=== PATIENT | female | born 1985 | race American Indian/Alaskan Native ===

== ENCOUNTER 2021-11-11 14:39 | Emergency (ER) | payer OTHER ==
[~2021-11-11] VITALS: Ht 160 cm; Wt 83.9 kg
[~2021-11-11 14:39] MED LIST: ABILIFY5 MG; IRON18 MG PO; PRENATAL TABLE1 EAC1 PO; ZOFRAN ODT8 MG SL
== END 2021-11-11 22:50 | disposition home or self-care (01) ==
LOC: ED 14:39
DX: Z30.432 Encounter for removal of intrauterine contraceptive device (principal)
CPT/HCPCS: 99283

== ENCOUNTER 2021-12-02 18:44 | Emergency (ER) | payer OTHER ==
[~2021-12-02] VITALS: Ht 162.6 cm; Wt 86.6 kg
[~2021-12-02 18:44] MED LIST changes: +MOTRIN IB200 MG PO; +PAIN RELIEF EX500 MG PO; +PERCOCET 7.5-31 EACH PO; +TYLENOL EXTRA500 MG PO
--- OUTSIDE RECORDS SUMMARY | 2021-12-02 18:50 | XMS ---
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 - 2 Visits in 30 Days CARE PROVIDERS There are no care providers on record at this time. Tatiana has no Care Guidelines for this patient. [facility] (12 MO.) [facility] NOTE: Visits indicate total known visits. ED/C VISIT TRACKING (12 MO.) 12/02/2021 18:44 [facility] [place] TYPE: Emergency COMPLAINT: - WOUND CHECK 11/11/2021 14:39 [facility] [place] TYPE: Emergency COMPLAINT: - VAGINAL ISSUES DIAGNOSES: - Encounter for removal of intrauterine contraceptive device INPATIENT VISIT TRACKING (12 MO.) No inpatient visits to display in this time frame [id number]
== END 2021-12-02 20:57 | disposition home or self-care (01) ==
LOC: ED 18:44
DX: L76.82 Other postprocedural complications of skin and subcutaneous tissue (principal); Z79.899 Other long term (current) drug therapy
CPT/HCPCS: 99283; J2270

== ENCOUNTER 2023-01-11 08:24 | Day surgery (SDC) | payer OTHER ==
[~2023-01-11] VITALS: Ht 162.6 cm; Wt 84.0 kg
--- NOTE | 2023-01-11 11:13 | NUR ---
01/11/23 1113 Sheets,Naabella 1106 PT ARRIVED TO PACU ON RA AND RESP EVEN AND UNLABORED. PT EYES CLOSED.
[2023-01-11] MEDS ORDERED: IBUPROFEN600 MG PO (11:22)
[2023-01-11] MEDS ORDERED: HYDROCODON-ACE1 EA10 PO (11:22)
[2023-01-11] MEDS ORDERED: ACETAMINOPHEN500 MG PO (11:22)
--- NOTE | 2023-01-11 20:49 | OR ---
[facility] [address], [place] [address] Signed DATE OF OPERATION: 01/11/2023 SURGEON: Aris Rubalcava MD PREOPERATIVE DIAGNOSES: 1. History of right breast cancer, status post chemotherapy. 2. Left subclavian Port-A-Cath device. POSTOPERATIVE DIAGNOSIS: 1. History of right breast cancer, status post chemotherapy. 2. Left subclavian Port-A-Cath device. PROCEDURES: 1. Explantation of left subclavian Port-A-Cath device. 2. Scar revision (excision of wide scar with primary approximation). ANESTHESIA: Local with monitored anesthesia care, Eric Siemens, LOSS PREVENTION DETECTIVE, and local 0.25% Marcaine with epinephrine 10 mL. INDICATION: This 37-year-old woman is a patient of Dr. Cecil Fritz at [facility]. She was treated for right breast cancer by lumpectomy, sentinel lymph node biopsy and axillary dissection. She additionally underwent chemotherapy on the basis of triple negative histology. She no longer needs her left subclavian Port-A-Cath device and explantation was recommended. Given her underlying overall situation, developmental delay, and so forth excision in the operative setting rather than in the office would be preferable with IV sedation and local. The risks of bleeding, infection, and other unforeseen complications was reviewed with her, she understands and wished to proceed. FINDINGS: Port was explanted completely without problem including the catheter and the port device itself. Well-formed capsule was noted. She tolerated the procedure well. BLOOD LOSS: Minimal. PROCEDURE IN DETAIL: The patient was brought to the operating room, placed in supine position, and given intravenous sedation. Preop antibiotic of Ancef had been given. The upper torso on the Electronically Signed By: ARIS RUBALCAVA MD 01/11/23 2049 PATIENT NAME: ELI FLEMING OPERATIVE REPORT DATE OF : 85 REPORT #: [id number] PHYSICIAN: ARIS RUBALCAVA MD PCP: CECIL FRITZ MD REPORT IS CONFIDENTIAL AND NOT TO BE RELEASED WITHOUT AUTHORIZATION [facility] [address], [place] [address] Signed left was prepared with a chlorhexidine solution and draped sterilely. The palpable port was noted in below the incision. The incision was somewhat wide and although not keloid in formation, was somewhat hypertrophic. The area was infiltrated with 0.25% Marcaine with epinephrine. Elliptical excision of the scar was undertaken. Dissection was carried through the subcutaneous tissue. Electrocautery used for hemostasis. The capsule was incised with electrocautery revealing underlying port. The port and catheter were removed in continuity without problem. The genaro catheter site was secured with a hemostat and oversewn with 3-0 Vicryl. Hemostasis was assured with electrocautery. Wounds closed in layers with interrupted 3-0 Vicryl and running subcuticular 3-0 Vicryl for the skin. Steri-Strips were applied as was Acticoat dressing. Blood loss was minimal. Complications none. MD TONE Maza/JESSICA /[id number] cc: MD Dr. Cecil Vidal [facility] Copies: KEISHA SORENSON MD ~ Electronically Signed By: ARIS RUBALCAVA MD 01/11/23 2049 PATIENT NAME: ELI FLEMING OPERATIVE REPORT DATE OF : 85 REPORT #: [id number] PHYSICIAN: ARIS RUBALCAVA MD PCP: CECIL FRITZ MD REPORT IS CONFIDENTIAL AND NOT TO BE RELEASED WITHOUT AUTHORIZATION
== END 2023-01-11 12:00 | disposition home or self-care (01) ==
LOC: OPS 08:24 → DS 08:24 → OPS 09:45
PROVIDERS: ATTEND Surgery
DX: Z45.2 Encounter for adjustment and management of vascular access device (principal); Z85.3 Personal history of malignant neoplasm of breast; F81.9 Developmental disorder of scholastic skills, unspecified
CPT/HCPCS: 00532; J2250; J2704; J3010; J7121

== ENCOUNTER 2024-08-17 16:28 | Emergency (ER) | payer OTHER ==
[~2024-08-17] VITALS: Ht 162.6 cm; Wt 81.0 kg
[~2024-08-17 16:28] MED LIST changes: +ACETAMINOPHEN500 MG PO; +AMOX TR-K CLV1 EAC1 PO; +HYDROCODON-ACE1 EA10 PO; +IBUPROFEN600 MG PO; +PREDNISONE20 MG PO; +VENTOLIN HFA18 GM INH; +ZITHROMAX250 MG PO
[2024-08-17] MEDS ORDERED: ondansetron HCL 4 MG TAB PO ONE (16:45)
[2024-08-17] MEDS ORDERED: ONDANSETRON ODT8 MG PO (17:10)
[2024-08-17 17:15] VITALS: BP 127/73
== END 2024-08-17 17:15 | disposition home or self-care (01) ==
LOC: ED 16:28
DX: R11.2 Nausea with vomiting, unspecified (principal); J18.9 Pneumonia, unspecified organism; F89 Unspecified disorder of psychological development; Z79.2 Long term (current) use of antibiotics; Z79.52 Long term (current) use of systemic steroids
CPT/HCPCS: 99284; A9270

== ENCOUNTER 2024-08-19 20:22 | Emergency (ER) | payer OTHER ==
[~2024-08-19] VITALS: Ht 162.6 cm; Wt 79.6 kg
[~2024-08-19 20:22] MED LIST changes: +ONDANSETRON ODT8 MG PO
[2024-08-19] MEDS ORDERED: LACTATED RINGER'S 1,000 ML IV ONE (21:00)
[2024-08-19] MEDS ORDERED: methylPREDNISolone SOD SUCC 125 MG/2 ML VIAL IV ONE (21:00)
[2024-08-19] MEDS ORDERED: ALBUTEROL/IPRATROPIUM 3 ML NEB INH ONE (21:00)
[2024-08-19] MEDS ORDERED: ondansetron HCL 4 MG/2 ML VIAL IV ONE (21:00)
[2024-08-19] MEDS ORDERED: FAMOTIDINE 20 MG/ 2 ML VIAL IV ONE (21:00)
[2024-08-19 21:22] LABS: INFLUENZA B NAA NEGATIVE (NEGATIVE); RESPIRATORY SYNCYTIAL VIR NAA NEGATIVE (NEGATIVE)
[2024-08-19 21:44] LABS: ALBUMIN 3.3 g/dL (3.4-5.0); ALBUMIN/GLOBULIN RATIO 0.65 (1.1-2.4); ANION GAP 18.3 (7-21); BILIRUBIN, TOTAL 1.1 ng/dL (0.2-1.0); BUN/CREATININE RATIO 17.56 (6.0-28.6); CALCIUM 9.7 mg/dL (8.5-10.1); CREATININE, SERUM 0.74 mg/dL (0.55-1.02); MAGNESIUM 1.6 mg/dL (1.8-2.4); POTASSIUM 3.3 mmol/L (3.5-5.1); PROTEIN, TOTAL 8.4 g/dL (6.4-8.2)
[2024-08-19 21:46] LABS: BASOPHILS 0.6 % (0-2); EOSINOPHILS 0.2 % (0-6); HEMATOCRIT 39.3 % (35.0-50.0); LYMPHOCYTES 16.2 % (24-44); MCH 26.4 (27-36); MCHC 33.2 g/dl (30-36); MCV 79.5 fl (81-99); MONOCYTES 6.3 % (0-12); NEUTROPHILS 76.7 % (39-80); PLATELET COUNT 233 K/uL (140-440); RBC 4.94 M/ul (4.3-5.7); RDW 15.3 (10.5-15.0)
[2024-08-19 22:05] LABS: LACTIC ACID, BLOOD 0.9 mmol/L (0.4-2.0)
[2024-08-19] MEDS ORDERED: POTASSIUM CHLORIDE 10 MEQ TABCR PO ONE (22:45)
[2024-08-19] MEDS ORDERED: levoFLOXacin 500 MG TAB PO ONE (22:45)
[2024-08-19] MEDS ORDERED: MAGNESIUM OXIDE 400 MG TABLET PO ONE (22:45)
[2024-08-19] MEDS ORDERED: ACETAMINOPHEN 500 MG TAB PO ONE (23:00)
[2024-08-19] MEDS ORDERED: LEVOFLOXACIN500 MG PO (23:27)
[2024-08-20 00:02] VITALS: BP 145/69
== END 2024-08-20 00:04 | disposition home or self-care (01) ==
LOC: ED 20:22
PROVIDERS: Internal Medicine
DX: J18.9 Pneumonia, unspecified organism (principal); J45.909 Unspecified asthma, uncomplicated; E87.6 Hypokalemia; E83.42 Hypomagnesemia; Z85.3 Personal history of malignant neoplasm of breast
CPT/HCPCS: 36415; 71045; 80053; 83605; 83735; 83880; 85025; 87040; 87502; 94640; 96374; 96375; 99285-25; A9270; J2405; J2919; J7121; U0002

== ENCOUNTER 2024-08-22 15:21 | Emergency (ER) | payer OTHER ==
[~2024-08-22] VITALS: Ht 162.6 cm; Wt 79.0 kg
[~2024-08-22 15:21] MED LIST changes: +LEVOFLOXACIN500 MG PO
[2024-08-22] MEDS ORDERED: predniSONE 20 MG TAB PO ONE (15:30)
[2024-08-22] MEDS ORDERED: ALBUTEROL/IPRATROPIUM 3 ML NEB INH ONE (15:30)
[2024-08-22 16:22] LABS: INFLUENZA B NAA NEGATIVE (NEGATIVE); RESPIRATORY SYNCYTIAL VIR NAA NEGATIVE (NEGATIVE)
[2024-08-22 17:10] VITALS: BP 140/75
== END 2024-08-22 17:10 | disposition home or self-care (01) ==
LOC: ED 15:21
PROVIDERS: Emergency Medicine
DX: J00 Acute nasopharyngitis [common cold] (principal); Z79.899 Other long term (current) drug therapy
CPT/HCPCS: 71045; 87502; 94640; 99285-25; J7512; U0002

== ENCOUNTER 2024-08-26 10:38 | Inpatient (IN) | payer OTHER ==
[~2024-08-26] VITALS: Ht 162.6 cm; Wt 75.7 kg
[2024-08-26] VITALS (16 sets, daily range): BP systolic 106–178; BP diastolic 70–148
[2024-08-26] MEDS ORDERED: ondansetron HCL 4 MG/2 ML VIAL IV PRN ×2 (10:45→13:30)
[2024-08-26] MEDS ORDERED: SODIUM CHLORIDE 0.9% 1,000 ML IV ONE (10:45)
[2024-08-26 11:21] LABS: BASOPHILS 0.3 % (0-2); EOSINOPHILS 0.1 % (0-6); HEMATOCRIT 40.7 % (35.0-50.0); HEMOGLOBIN 13.9 g/dL (12.0-18.0); LYMPHOCYTES 8.1 % (24-44); MCH 26.8 (27-36); MCHC 34.1 g/dl (30-36); MCV 78.5 fl (81-99); MONOCYTES 4.3 % (0-12); NEUTROPHILS 87.2 % (39-80); PLATELET COUNT 212 K/uL (140-440); RBC 5.18 M/ul (4.3-5.7); RDW 14.8 (10.5-15.0)
[2024-08-26 11:28] LABS: ALBUMIN 3.4 g/dL (3.4-5.0); ALBUMIN/GLOBULIN RATIO 0.65 (1.1-2.4); ANION GAP 17.3 (7-21); BILIRUBIN, TOTAL 1.2 ng/dL (0.2-1.0); BUN/CREATININE RATIO 18.66 (6.0-28.6); CALCIUM 10.2 mg/dL (8.5-10.1); CREATININE, SERUM 0.75 mg/dL (0.55-1.02); POTASSIUM 3.3 mmol/L (3.5-5.1); PROTEIN, TOTAL 8.6 g/dL (6.4-8.2)
[2024-08-26 11:29] LABS: INFLUENZA B NAA NEGATIVE (NEGATIVE); RESPIRATORY SYNCYTIAL VIR NAA NEGATIVE (NEGATIVE)
[2024-08-26 11:54] LABS: BILIRUBIN, URINE POSITIVE (negative); BLOOD/HGB, URINE TRACE-I (Negative); KETONE, URINE SMALL (Negative); LEUK ESTERASE, URINE NEGATIVE (negative); NITRITE, URINE NEGATIVE (negative)
[2024-08-26 11:58] LABS: EPITHELIAL CELLS, URINE SQUAMOUS 1+ /lpf (0-1+)
[2024-08-26 12:01] LABS: CRYSTALS, URINE AMORPHOUS URATES 1+ (0-1+)
[2024-08-26 12:02] LABS: BACTERIA, URINE 1+ /hpf (negative); CASTS, URINE NONE SEEN \\lpf; COLLECTION TYPE, URINE CATH; REFLEX CULTURE, URINE No (No)
[2024-08-26] MEDS ORDERED: CEFTRIAXONE/SODIUM CHLORIDE 1 GM/100 ML PIGGYBACK IV SCH (12:52)
[2024-08-26] MEDS ORDERED: AZITHROMYCIN 500 MG in DEXTROSE 5% 250 ML IV SCH (12:53)
[2024-08-26] MEDS ORDERED: ACETAMINOPHEN 325 MG TAB PO PRN (13:00)
[2024-08-26] MEDS ORDERED: KETOROLAC TROMETHAMINE 15 MG/ML VIAL IV ONE (13:00)
[2024-08-26] MEDS ORDERED: POTASSIUM CHLORIDE 10 MEQ TABCR PO ONE (13:15)
[2024-08-26] MEDS ORDERED: ALBUTEROL SULFATE 0.083% 3 ML VIAL INH PRN (14:15)
--- NOTE | 2024-08-26 14:55 | NUR ---
PT WAS ABLE TO TRANSFER SELF FROM STREACHER TO BED. ORAL CARE PROVIDED AND MOISTURE CREAM APPLIED BY TALENT PARTNER. ASSESSMENT COMPLETED AND SIDE RAILS X 4 UP AND PT IS ACCROSS FROM NURSES STATION DUE TO MENTAL STATUS CHANGES.
--- NOTE | 2024-08-26 15:16 | NUR ---
pt appears to be sleeping resp even and unlabored at this time. side rails x 4 and bed alarm on.
--- NOTE | 2024-08-26 15:57 | NUR ---
PT WANTED TO GO TO THE BATHROOM, TWO PERSON ASSISTANCE TO BEDSIDE COMMODE, PT WAS UNABLE TO KEEP LEGS UNDER HER AND TWO STAFF HELPED PT TO THE FLOOR. THEN ASKED FOR FOR LIFT TO GET PT BACK TO BED AND THEN PLACED ATTENDS AND PURWICK INPLACE. BEDSIDE SWALLOW EVEL COMPLETED AND PT PASSED WITH THIN LIQUIDS, SIDE WELLS X 4 AT THIS TIME. PT HAD SOME EMINES AND WAS COUGHING AFTERWARDS. SUNCTION ON AT THE BEDSIDE FOR ASSISTANCE NEEDED. DR VARGAS NOTIFIED AND OREDERS CHANGED FROM PO POTASSIUM TO IV. AND HE WANTS PT TO TAKE ORALS WITH HEAD OF THE BED AT 90 DEGREES. PHONE CALL TO PHARMACY AND POTASSIUM CHANGED TO IV.
[2024-08-26] MEDS ORDERED: POTASSIUM ACETATE 40 MEQ,LIDOCAINE HCL 1% 40 MG in DEXTROSE 5% 250 ML IV ONE (16:00)
[2024-08-26] MEDS ORDERED: POTASSIUM CHLORIDE 40 MEQ,LIDOCAINE HCL 1% 40 MG in DEXTROSE 5% 250 ML IV ONE (16:15)
--- NOTE | 2024-08-26 16:22 | NUR ---
STARTED IV K+ AT THIS TIME, TALKED WITH PT. SHE IS ASKING FOR HER SISTER. EXPLAINED THAT SHE IS TO WORK [employer] AND PT WANTS TO TALK TO HER WHEN WE SEE HER. EXPLAINED THAT WHEN WE SEE HER SISTER WILL WILL HAVE HER COME AND TALK WITH HER.
--- NOTE | 2024-08-26 16:31 | NUR ---
DIANA AND CELL PHONE, KEYS AND BLACK CASE IN LOCK BOX IN ROOM. PT IS UNABLE TO GO THOUGHT HER PERSONAL BELONGINGS. SHE HAS CLOTHING IN GREEN BAG AND A BACK PACK
[2024-08-26] MEDS ORDERED: FLU VACC TS2024-25(6MOS UP)/PF 1 EACH SYR IM SCH (17:15)
--- NOTE | 2024-08-26 17:28 | NUR ---
tried to feed patient, she would take a bit and push her food to the front of her mouth, and then writer technical publications would remove the food. tryed water agin and then patient would cough. dr notified and talked with sister. and sister at the bedside at this time.
[2024-08-26] MEDS ORDERED: SODIUM CHLORIDE 0.9% 1,000 ML IV SCH (18:00)
[2024-08-26] MEDS ORDERED: LORazepam 2 MG/ML VIAL ONE (18:02)
[2024-08-26] MEDS ORDERED: LORazepam 2 MG/ML VIAL IV ONE (18:30)
--- NOTE | 2024-08-26 18:30 | NUR ---
PT TRANSPORTED TO CT VIA BED AT 18:[address] TABLE, BUT PT WOULD NOT HOLD STILL FOR TEST. PHONE CALL TO AND ORDER RECEIVED 0.5MG ATIVAN IV PUSH X 1. IT WAS GIVEN AT 18:06 AND PT COULD NOT HOLE STILL EVEN WITH MEDIS ON BOARD. 18:12 PT STILL MOVING ON TABLE. PT TRANSFERED BACK TO THE BED AND BROUGHT BACK TO THE FLOOR TO ROOM 110. NOTIFIED OF ISSUE WITH PT OF NOT GETTING THE TEST COMPLETED. NO NEW ORDERS.
[2024-08-26 19:09] LABS: TSH, 3RD GENERATION 1.498 uIU/mL (0.358-3.740)
--- NOTE | 2024-08-26 19:10 | NUR ---
PATIENT ARRIVED TO UNIT VIA BED FROM MED/SURG. REPORT RECEIVED FROM RICHARD JACKSON. VSS. NOTED EYES NO HAVE NO EYE CONTACT WITH PEOPLE IN THE ROOM, NOTED NO TRACKING WITH EYE MOVEMENT, HOWEVER PUPILS REACTIVE. NURSING STAFF IN ROOM WITH PATIENT BED ALARM ON.
--- NOTE | 2024-08-26 19:30 | NUR ---
PT TRANSFERED TO CCU IN RM 129 VIA BED REPORT GIVEN TO ANAYELI RAMOS. ALL QUESTIONS ANSWERED AND PERSONAL BELONGINGS TAKEN AT THIS TIME TO ROOM 129.
--- NOTE | 2024-08-26 19:44 | NUR ---
20G, 1.75" USIV PLACED @ 0.5CM DEPTH. FLUSHED WELL, GOOD BLOOD RETURN. PT TOLERATED WELL. PRIMARY RN IN ROOM.
[2024-08-26] MEDS ORDERED: ETOMIDATE 40 MG/20 ML VIAL IV PRN (19:45)
--- NOTE | 2024-08-26 19:45 | NUR ---
PATIENT IN BED. MD IN TO SEE PATIENT. NEW ORDERS RECEIVED. IV FLUIDS HUNG, IV ABX STARTED. PATIENT ALERT AND ORIENTED X 2, SHE IS ABLE TO TELL US SHE IS IN A HOSPITAL AND WHAT TOWN WE ARE IN. PATIENT CRIES OUT AND MOANS AT TIMES. WHEN ASKED IF SHE IS IN PAIN PATIENT REPORTS SHE HAS STOMACH PAIN. PATIENT REPORTS FEELING LIKE SHE IS GOING TO "THROW UP", PRN GIVEN SEE MAR. ABDOMEN SOFT, APPEARS NON TENDER TO PALPATION HOWEVER PATIENT REPORTS ABD PAIN. BOWEL TONES HYOACTIVE. MD NOTIFIED. SECOND RN SKIN CHECK COMPLETED. SKIN INTACT AND UNREMARKABLE FOR COMPLICATIONS. NEURO ASSESSMENT COMPLETED.
--- NOTE | 2024-08-26 20:45 | NUR ---
PATIENT SISTER IN ROOM. PATIENT C/O HEADACHE. MD NOTIFIED.
[2024-08-26] MEDS ORDERED: ETOMIDATE 40 MG/20 ML VIAL ONE (21:05)
[2024-08-26] MEDS ORDERED: MORPHINE SULFATE 4 MG/ML VIAL IV ONE (21:15)
--- NOTE | 2024-08-26 21:29 | NUR ---
PATIENT HOLDING SIDE RAILS OF BED SHAKING THEM. RESTLESS C/O HEAD PAIN. PRN GIVEN. SEE MAR.
--- NOTE | 2024-08-26 21:45 | NUR ---
PATIENT TAKEN DOWN TO CT.
--- NOTE | 2024-08-26 22:15 | NUR ---
PATIENT BACK TO CCU. PATIENT TOLLERATED CT WITH NO ISSUES OR CONCERNS. VSS. RESTING IN BED. IVF RESTARTED. RESTING IN BED RESPIRATIONS EVEN AND UNLABORED. BED ALARM ON.
[2024-08-26] MEDS ORDERED: CEFTRIAXONE/SODIUM CHLORIDE 1 GM/100 ML PIGGYBACK IV ONE (23:00)
[2024-08-26] MEDS ORDERED: DEXAMETHASONE SOD PHOS 4 MG/ML VIAL IV SCH (23:00)
--- NOTE | 2024-08-26 23:01 | NUR ---
PATIENT WITH DECREASED URINE OUTPUT. BLADDER SCAN FOR > 684MLS.
[2024-08-26] MEDS ORDERED: MORPHINE SULFATE 4 MG/ML VIAL IV PRN (23:15)
--- NOTE | 2024-08-26 23:22 | NUR ---
PATIENT RESTLESS IN BED. GRABBING SIDE RAILS, CRYING OUT. PRN GIVEN.
[2024-08-26] MEDS ORDERED: fentaNYL citrate 100 MCG/2 ML VIAL IV PRN (23:30)
--- NOTE | 2024-08-26 23:40 | NUR ---
PATIENT CONTINUES TO REPORT PAIN, LIMITED COMMUNICATION BUT STATES YES TO PAIN IN HER HEAD, ABD AND LEGS. PATIENT TRASHING IN BED AND APPEARS TO BE IN SEVERE PAIN. FLACC SCORE 9/10. MD AT BEDSIDE. ORDERS GIVEN FOR FETANYL WHICH WAS PROVIDED. PATIENT CONTINUED TO HAVE MOMENTS OF DISCOMFORT AND RESTLESSNESS. PRECEDEX ORDERED BUT NOT YET STARTED. STAFF AT BEDSIDE TO COMFORT PATIENT. ATTEMPTS MADE TO REPOSITION PAIN FOR COMFORT.
[2024-08-27] VITALS (23 sets, daily range): BP systolic 138–183; BP diastolic 75–109
--- NOTE | 2024-08-27 00:17 | NUR ---
16F REAGAN CATHERTER PLACED WITH 10CC NS IN BALLOON, PATIENT TOLLERATED WELL. YELLOW URINE RETURN. PATIENT RESTING IN BED WITH EYES CLOSED APPEARS TO BE COMFORTABLE AT THIS TIME. BED ALARM ON.
--- NOTE | 2024-08-27 00:43 | NUR ---
PATIENT RESTING IN BED. APPEARS TO BE COMFORTABLE AT THIS TIME. VSS. IV FLUIDS INFUSING WITH NO ISSUES OR CONCERNS. MEDICATIONS ADMINSTERED SEE MAR. ASSESSMENT COMPLETE. BED ALARM ON.
--- NOTE | 2024-08-27 01:21 | NUR ---
FAMILY AT BEDSIDE.
--- NOTE | 2024-08-27 02:40 | NUR ---
PATIENT WITH INCREASED PAIN, GRABBING SIDE RAILS OF BED. MOANING AND CRYING. PRNS GIVEN SEE MAR.
--- NOTE | 2024-08-27 03:10 | NUR ---
INCREASED PAIN CONTINUES, PATIENT RESTLESS. PRECEDEX DRIP STARTED. SEE MAR. FAMILY AT BEDSIDE.
--- NOTE | 2024-08-27 04:02 | NUR ---
PATIENT INCREASINGLY AGITATED. FAMILY BELIVES HER TO BE PAINFUL AND PATIENT FLACC SCORE 8/10. PATIENT PROVIDED PRN MEDS PER ORDER AND PRECEDEX WAS TITRATED; SEE FLOWSHEET AND EMAR. PATIENT IS GRASPING AT FAMILY AND RESTLESS IN THE BED. FAMILY UNABLE TO CONSOLE PATIENT. PATIENT RR 25 AND GASPING. Sp02 90% ON ROOM AIR. PLACED ON 2L NC. HR 130'S. SEVERAL MINS AFTER MEDS PROVIDED PATIENT'S HR IMPROVED TO 110. RR 18. Sp02 95% ON 2L NC. PATIENT APPEARS MORE COMFORTABLE. RASS -1. PATIENT FAMILY REMAINS AT BEDSIDE.
--- NOTE | 2024-08-27 05:23 | NUR ---
PATIENT RESTING IN BED WITH EYES CLOSED. RESPIRATIONS EVEN AND UNLABORED. IV SITE PATENT. SAO2 97% ON 2L OXYGEN VIA NC. FAMILY AT BEDSIDE. REAGAN DRAINING YELLOW URINE WITH NO ISSUE, QUANITY SUFFICIENT URINE OUTPUT. LAB IN ROOM. BED ALARM ON.
[2024-08-27 05:43] LABS: BASOPHILS 0.4 % (0-2); HEMATOCRIT 37.4 % (35.0-50.0); HEMOGLOBIN 12.4 g/dL (12.0-18.0); LYMPHOCYTES 5.7 % (24-44); MCH 26.4 (27-36); MCHC 33.2 g/dl (30-36); MCV 79.5 fl (81-99); MONOCYTES 3.4 % (0-12); NEUTROPHILS 90.5 % (39-80); PLATELET COUNT 184 K/uL (140-440); RBC 4.71 M/ul (4.3-5.7); RDW 15.2 (10.5-15.0)
[2024-08-27 05:52] LABS: ANION GAP 14.2 (7-21); BUN/CREATININE RATIO 11.76 (6.0-28.6); CREATININE, SERUM 0.68 mg/dL (0.55-1.02); MAGNESIUM 1.7 mg/dL (1.8-2.4); POTASSIUM 3.2 mmol/L (3.5-5.1)
--- NOTE | 2024-08-27 06:15 | NUR ---
PATIENT RESTING IN BED, IV SITES PATENT. IV FLUIDS INFUSING WITH NO ISSUES. CONTINUES ON PRECEDEX GTT 0.5MCG. VSS. IV ABX HUNG. FAMILY AT BEDSIDE. BED ALARM ON.
--- NOTE | 2024-08-27 06:58 | NUR ---
CALL LIGHT ANSWERED. PATIENT RESTLESS, PULLING ON OXYGEN NC. FAMILY UNABLE TO CONSOLE PATIENT. PRN GIVEN AND PRECEDEX GTT INCREASED TO 0.6. PATIENT NOW RESTING COMFORTABLY IN BED WITH FAMILY AT BEDSIDE.
[2024-08-27] MEDS ORDERED: MAGNESIUM SULFATE 2 GM/50 ML BAG IV ONE (08:00)
[2024-08-27] MEDS ORDERED: IBLOOD GLUCOSE TEST STRIP 1 EA TEST VI SCH (08:00)
--- NOTE | 2024-08-27 08:17 | NUR ---
REFERRED BY RN ANNIE. PT APPEARED TO BE SLEEPING, FAMILY CONSIDERING INFORMATION RELAYED BY MEDCICAL CARE TEAM, EXPRESSING SITUATIONALLY APPROPRIATE EMOTIONS, TEARS. ENGINEERING OPERATOR PROVIDED SUPPORTIVE PRESENCE, HOSPITALITY, EXPLORED HOPE, PRAYER. FAMILY EXPRESSED GRATITUDE, HOPE.
[2024-08-27] MEDS ORDERED: POTASSIUM CHLORIDE 40 MEQ,LIDOCAINE HCL 1% 40 MG in DEXTROSE 5% 250 ML IV ONE (08:30)
[2024-08-27] MEDS ORDERED: CEFTRIAXONE/SODIUM CHLORIDE 2 GM/100 ML PIGGYBACK IV SCH (09:00)
[2024-08-27] MEDS ORDERED: ENOXAPARIN SODIUM 40 MG/0.4 ML SYR SUB-Q SCH (09:00)
--- NOTE | 2024-08-27 09:08 | NUR ---
IN PATIENT'S ROOM THIS AM AROUND [address] VARGAS HE WAS MAKING HIS ROUNDS. PT'S SISTER OLIVIA, MOTHER MARY ANN, AND BROTHER YAA WERE IN ROOM. DR. VARGAS DISCUSSING WITH FAMILY MEMBERS THE FINDINGS OF THE CT SCANS THAT WERE OBTAINED LAST EVENING. DR. SORENSON WAS CONSULTED BY DR. VARGAS, AND THE FAMILY IS ASKING TO VISIT WITH DR. SORENSON TODAY, WHICH WILL BE AROUND 1300. PATIENT REMAINS ON PRECEDEX GTT AT 0.6 MGC/KG/HR. PATIENT IS DROWSY AND APPEARS COMFORTABLE WITH THIS LEVEL OF MEDICATION INFUSING. PT STILL NOTED TO BE BRINGING ARMS UP TO FACE OCCASIONALLY AND GRIMACING, WELL MOVING LEGS IN BED TO REPOSITION. HR IN THE 70-80s MOSTLY, SINUS. PT IS WEARING 2 L NC AT THIS TIME. BP AT 0900 WAS 142/76 (97). MEDS STARTED PER EMAR.
--- NOTE | 2024-08-27 10:25 | NUR ---
PATIENT CONTINUES TO SLEEP AT THIS TIME WITH HER SISTER AND HER MOTHER AT HER BEDSIDE. PRECEDEX REMAINS AT 0.6 MCG/KG/HR. IVF CONTINUE AT 125 ML/HR AND IV POTASSIUM ALSO INFUSING INTO RIGHT WRIST. WILL CONTINUE TO MONITOR.
--- NOTE | 2024-08-27 11:19 | NUR ---
PATIENT REPOSITIONED AROUND 1030 AND A PILLOW PLACED UNDER RIGHT HIP. WILL CONTINUE TO HELP PATIENT TURN NEEDED. PT NOTED TO BE MOANING SOME AND APPEARING TO HAVE SOME LEVEL OF DISCOMFORT. PRN FENTANYL GIVEN PER EMAR.
[2024-08-27] MEDS ORDERED: PHARMACY RENAL DOSE ADJUSTMENT 1 DOSE MISC PO SCH (12:00)
--- NOTE | 2024-08-27 12:03 | NUR ---
THE PATIENT IS SLEEPING AT THIS. THE DC SEWER CONNECTOR WILL NOT DISTURB THE PATIENT. DR SORENSON WILL BE TALKING TO FAMILY AND PATIENT ABOUT THE NEW CANCER FINDINGS. THE CHEMICAL PROCESS EQUIPMENT OPERATOR WILL RETURN LATER TO TALK TO THE PATIENT OR FAMILY. THE PATIENT IS ON A PRECEDEX DRIP.
--- NOTE | 2024-08-27 13:18 | NUR ---
PATIENT'S FAMILY HAS GONE OVER TO TALK WITH DR. SORENSON. PATIENT GIVEN A BED BATH AND LINENS CHANGED. PATIENT IS UNCOMFORTABLE DURING THIS MOVEMENT SOME, AND MOANS IN PAIN, WITH HER BROW FURROWED. WHEN ASKING PATIENT IF SHE IS IN PAIN, SHE MOANS AND NODS HEAD YES. WHEN ASKING PATIENT IF SHE KNOWS WHERE SHE IS, SHE GROANS "HOME." ORIENTED PATIENT TO PLACE. PT NOW RESTING. PRECEDEX REMAINS AT 0.6 MCG/KG/HR. WILL CONTINUE TO MONITOR.
--- NOTE | 2024-08-27 13:21 | NUR ---
PT UNABLE TO TALK, FAMILY NOT IN ROOM. PROVIDED PRAYER.
--- NOTE | 2024-08-27 13:49 | NUR ---
UR CLINICAL REVIEW: [facility] INPATIENT CRITERIA FOR PNEUMONIA BASIC DMAP INPT 08/26/24 @ 1307 ORDER MATCHES REG NO AUTH REQUIRED PER MEDICAID GUIDELINES DISCHARGE PLANNING PENDING FURTHER CONSULT AND EVALUATION 08/29/24
--- NOTE | 2024-08-27 13:52 | NUR ---
WENT TO PATIENT'S ROOM TO DO THE ASSESMENT. PATIENT IS SLEEPING AND FAMILY HAS GONE TO 'S OFFICE TO DISCUSS THE CANCER FINDINGS.
--- NOTE | 2024-08-27 15:17 | NUR ---
VISITED DURING END OF DAY ROUNDS. PT SUPPORTED BY EXTENSIVE FAMILY IN ROOM. ALL DENIED IMMEDIATE NEEDS. PROJECT MANAGEMENT ENGINEER PROVIDED SUPPORTIVE PRESENCE, PRAYER. FAMILY EXPRESSED GRATITUDE.
--- NOTE | 2024-08-27 15:18 | NUR ---
THE PATIENT'S ROOM IS DARK AND PATIENT IS SLEEPING. THE PATIENT CONTINUES ON A PRECEDEX DRIP.ALSO SPOKE TO THE NURSES AND READ THE CHART TO DO THIS ASSESSMENT.THE PATIENT IS DEVELOPMENTALY DELAYED AND IS ABLE TO ANSWER SIMPLE QUESTIONS.PATIENT HAS DX BREAST CANCER AND NOW HAS METS.THE PATIENT HAS SHOWN SOME DECLINE THE LAST COUPLE MONTHS. THE PATIENT'S MOTHER AND SISTER MET WITH TO DISCUSS THE CANCER FINDINGS. THE NEUROBIOLOGIST WILL MONITOR THE PATIENT'S NEEDS CLOSELY AND BE READY TO SUPPORT THE PATIENT'S NEEDS.
--- NOTE | 2024-08-27 17:15 | NUR ---
medications reconiciled
--- NOTE | 2024-08-27 18:17 | NUR ---
PATIENT REMAINS ON PRECEDEX GTT AT 0.3 MCG/KG/HR.PT IS RESTING AND SLEEPING MOSTLY, BUT STILL AWAKENS SOME AND MOANS OUT, APPEARING UNCOMFORTABLE AND IN PAIN. PRN PAIN MEDS ARE GIVEN PER EMAR. PT'S SISTER AND HER MOTHER REMAIN IN ROOM AND ATTENTIVE TO HER. IVF CONTINUE AT 125 ML/HR.
--- NOTE | 2024-08-27 19:30 | NUR ---
REPORT RECEIVED FROM RAMÓN RAMOS. PT IS RESTING IN BED WITH FAMILY IN ROOM. PRECEDEX DRIP IS INFUSING AT 0.3MCG/KG/HR AND IVF INSUING AT 125 ML/HR. PT APPEARS RESTFUL, NO OUTWARD S/SX OF PAIN NOTED. HR 70'S, RR 16, SOMEWHAT IRREGULAR BUT NOT LABORED.
--- NOTE | 2024-08-27 20:19 | NUR ---
IN TO DISCUSS PLAN OF CARE WITH PTS BROTHER ABLE- PLAN TO DISCUSS QUESTIONS AND CONCERNS FOR PLAN FOR PT WITH MD TOMORROW AND CASE MANAGEMENT. PT IS RESTFUL AND CALM, HR 70'S SINUS RHYTHM, SPO2 98% ON ROOM AIR. RR 16.
--- NOTE | 2024-08-27 20:21 | NUR ---
PATIENT BS LEVEL OBTAINED AND RECORDED BY THIS RN. PATIENT AND FAMILY HAVE NO CURRENT NEEDS. CALL LIGHT IN REACH.
--- NOTE | 2024-08-27 22:50 | NUR ---
PATIENT MOTHER OUT TO NURSES STATION REPORTING THAT PATIENT IS IN PAIN. THIS RN ASKED PATIENT IF SHE WAS IN PAIN AND SHE SHOOK HER HEAD YES. PRN PAIN MEDICATION ADMINISTERED. PATIENT AND FAMILY EDUCATED TO CALL IF PATIENT IS STILL IN PAIN IN ABOUT 20 MINUTES. PATIENT MOTHER VERBILIZED UNDERSTANDING. NO FURTHER NEEDS. CALL LIGHT IN REACH.
[2024-08-28] VITALS (17 sets, daily range): BP systolic 141–177; BP diastolic 79–116
--- NOTE | 2024-08-28 00:04 | NUR ---
IN TO CHECK ON PT, SHE IS LOOKING RESTFUL SPO2 92% ON ROOM AIR, HR 80'S. MOTHER AT BEDSIDE.
--- NOTE | 2024-08-28 00:14 | NUR ---
IN TO CHECK ON PT AND MOM, DENIES NEEDS, PT REMAINS RESTFUL AND NO OUTWARD SIGNS OF PAIN NOTED.
--- NOTE | 2024-08-28 01:35 | NUR ---
PATIENT AND FAMILY MEMBER REPORTS PATIENT IS HAVING PAIN. REAGAN EMPTIED BY THIS RN. WARM BLANKET PROVIDED TO PATIENTS MOTHER. PATIENT AND MOTHER HAVE NO FURTHER NEEDS. CALL LIGHT IN REACH.
--- NOTE | 2024-08-28 01:53 | NUR ---
SCHEDULED MEDICATION ADMINISTERED. PATIENT APPEARS COMFORTBALE. RR 16. PATIENT AND MOTHER HAVE NO FURTHER NEEDS. CALL LIGHT IN REACH.
--- NOTE | 2024-08-28 02:20 | NUR ---
PT BEGAN MOANING AND CRYING, BREATHING HARD AND GASPING TO SPEAK, DOES REPLY "YES" WHEN ASKED ABOUT PAIN. 2MG IV MORPHINE GIVEN. PT CONINUED TO CRY AND WRITHE AROUND IN BED FOR APPROX 15 MINUTES. AT ONE POINT SHE DID SAY "LIGHT" AND INDICATED THAT THE LIGHT THAT WAS TURNED ON WAS HURTING HER SO LIGHT WAS TURNED OFF. PRECEDEX DRIP WAS TURNED UP TO 0.5MCG/KG/HR. AFTER 15 MINUTES WITH NO CHANGE IN PTS APPEARANCE OF PAIN 25MCG IV FENTANYL WAS GIVEN. AFTER FIVE MINUTES PT STARTED TO CALM AND CLOSE EYES AND APPEAR RESTFUL ONCE AGAIN. MOM REMAINS AT BEDSIDE. WILL CONT TO MONITOR.
--- NOTE | 2024-08-28 03:30 | NUR ---
PT NOW CALM AND RESTING, HR 70'S, RR 16 SPO2 92% ON ROOM AIR. MOM AT BEDSIDE.
--- NOTE | 2024-08-28 04:20 | NUR ---
PT AWAKE AND MOANING/CRYING/GASPING. WHEN ASKED IF SHE IS HAVING PAIN SHE NODS YES, WHEN ASKED WHERE SHE IS ABLE TO SAY "EVERYWHERE", FLACC PAIN SCALE 10/10. 25 MCG IV FENTANYL GIVEN. PRECEDEX DRIP AT 0.5 MCG/KG/HR.
--- NOTE | 2024-08-28 05:01 | NUR ---
PT HAS REMAINED RESTFUL, WITH FLACC PAIN SCALE 1/10 SINCE LAST DOSE OF FENTANYL WAS GIVEN. FACE STILL LOOKS A LITTLE TENSE.
[2024-08-28 05:39] LABS: BASOPHILS 0.2 % (0-2); HEMATOCRIT 39.1 % (35.0-50.0); HEMOGLOBIN 13.1 g/dL (12.0-18.0); LYMPHOCYTES 5.8 % (24-44); MCH 26.6 (27-36); MCHC 33.4 g/dl (30-36); MCV 79.5 fl (81-99); MONOCYTES 4.2 % (0-12); NEUTROPHILS 89.8 % (39-80); PLATELET COUNT 175 K/uL (140-440); RBC 4.91 M/ul (4.3-5.7); RDW 15.1 (10.5-15.0)
[2024-08-28 05:52] LABS: ANION GAP 14.1 (7-21); BUN/CREATININE RATIO 14.75 (6.0-28.6); CALCIUM 9.4 mg/dL (8.5-10.1); CREATININE, SERUM 0.61 mg/dL (0.55-1.02); POTASSIUM 3.1 mmol/L (3.5-5.1)
--- NOTE | 2024-08-28 06:20 | NUR ---
PT MOANING OUT/CRYING WITH FACIAL GRIMACING AND STATES "YES" SHE IS IN PAIN. 2MG IV MORPHINE GIVEN. PRECEDEX DRIP CONT AT 0.5MCG/KG/HR.
--- NOTE | 2024-08-28 06:42 | NUR ---
PT NOW RESTFUL AND NO LONGER CRYING.
[2024-08-28] MEDS ORDERED: POTASSIUM CHLORIDE 10 MEQ/100 ML BAG IV ONE (06:45)
[2024-08-28] MEDS ORDERED: POTASSIUM CHLORIDE 40 MEQ in DEXTROSE 5% 250 ML IV ONE (08:45)
--- NOTE | 2024-08-28 08:51 | NUR ---
IN PATIENT'S ROOM FOR AM ASSESSMENT AND ONCOLOGY RESEARCH RN. PATIENT RESTING ON PRECEDEX GTT STILL, CURRENTLY AT 0.5 MCG/KG/HR. IVF CONTINUE AT 125 ML/HR. PT TO HAVE IV POTASSIUM REPLACED TODAY WELL. PT'S MOTHER, BROTHER AND SISTER IN LAW IN ROOM AT THIS TIME. PT'S MOTHER REPORTS THEY ARE HAVING A FAMILY CONFERENCE AROUND 1200 TODAY. PT AWAKENS WHEN THIS RN IN ROOM AND MOANS IN PAIN, SAYS "OWE" AND PULLS HER HANDS UP TO HER HEAD. PT ALSO SAYS "PAIN, HEAD," AND WHEN ASKING "DOES YOUR HEAD HURT?" SHE NODS HEAD CLEARLY YES. FENTANYL PATCH STARTED ON LEFT ANTERIOR CHEST. PT FOLLOWS COMMANDS WHEN ASKED TO WIGGLE HER TOES. REAGAN INTACT, DRAINING CLEAR YELLOW URINE. ORAL CARE PROVIDED. WILL CONTINUE TO MONITOR.
[2024-08-28] MEDS ORDERED: FENTANYL 25 MCG/HR 1 EA TDSY TD SCH (09:00)
--- NOTE | 2024-08-28 10:00 | NUR ---
Spoke with pts mom, brother, and DAMIAN. Pt is sleeping on Pecedex. Family are having a difficult time deciding if pt should have further treatment or change comfort care. We discussed options for hospice and for treatment. We also discussed where pt will go on dc. Part of the family would like a SNF and others feel pt should go home. We discussed what going home would look like and what a facility do for them. They would like to meet with family, CM and Dr. Shaffer at 12:30. I will contact the [employer] to check if they will pay for Hospice if Medicaid covers the cost of a SNF. They deny further questions. I called and left a message for Julissa Rice asking if they will cover the cost of Hospice through the [employer] and asked for a return call.
--- NOTE | 2024-08-28 10:10 | NUR ---
PATIENT MEDICATED PRN WITH FENTANYL FOR SIGNS OF DISCOMFORT. PATIENT INDICATING THAT SHE WANTS TO SIT UP MORE, AND HOB ELEVATED. PT ALSO SAYING, "CAN'T MOVE MY HEAD" BUT SHE IS ABLE TO MOVE HEAD SOME. PILLOWS REPOSITIONED. THEN PATIENT INDICATING SHE WOULD LIKE TO LAY ON HER SIDE. HELPED PATIENT TO REPOSITION. CASE MANAGEMENT NOW IN ROOM WITH PATIENT AND FAMILY AT THIS TIME. FAMILY WANTING TO HAVE A DISCUSSION WITH PHYSICIAN AND CASE MANAGEMENT AT 1200. WILL CONTINUE TO MONITOR.
--- NOTE | 2024-08-28 10:33 | NUR ---
VISITED DURING SPIRITUAL CARE ROUNDS. PT UNABLE TO VISIT; TALKED WITH MOTHER AND BROTHER IN ROOM. BOTH DENIED IMMEDIATE NEEDS. NAIL MAKING MACHINE TENDER PROVIDED SUPPORTIVE PRESENCE, HOSPITALITY, PRAYER. MOTHER EXPRESSED GRATITUDE, AWARENSS OF NEEDS FOR SELF CARE.
--- NOTE | 2024-08-28 11:31 | NUR ---
PATIENT AGAIN MOANING OUT AND TRYING TO TALK MORE. PT INDICATING SHE WANTS TO SIT UP MORE AND THAT HE NECK IS HURTING. OFFERED A WARM COMPRESS FOR PATIENT'S NECK, TO WHICH SHE AGREED TO, BUT DIDN'T LIKE IT ONCE IT WAS ON. PATIENT OPENING EYES SPONTANEOUSLY, AND WHEN ASKING PATIENT IF SHE CAN SEE, SHE STATES SHE CAN. PT ANSWERED CORRECTLY WHEN THIS NURSE HELP UP FIVE FINGER AND TWO FINGERS. SHE ALSO ANSWERED CORRECT WHEN ASKED WHAT COLOR HER BROTHER'S SHIRT WAS, WHICH IS BLACK. WHEN ASKING PATIENT IF SHE WANTS MORE PAIN MEDICATION, SHE HAS STATED "NO, NO MORE MEDS." PATIENT IS NOW SITTING UPRIGHT MORE IN BED. PRECEDEX TITRATED DOWN TO 0.2 MCG/KG/HR. DR. VARGAS UPDATED AND AGREES WITH WANTING TO TITRATE DOWN THE PRECEDEX TO OFF AND TO SEE HOW PATIENT RESPONDS. PT'S BROTHER REMAINS IN ROOM AND A DIFFERENT SISTER HAS ARRIVED TO VISIT HER.
--- NOTE | 2024-08-28 12:05 | NUR ---
Received a message from Julissa, the [place] will pay for Hospice.
--- NOTE | 2024-08-28 12:45 | NUR ---
Met with multiple family members, Dr. Shaffer, and myself. discussed pts current condition and treatments. He discussed concern even with treatment her cancer will never be cured. He also discussed palliative care options. I updated family the [place] will cover the cost of Hospice and medicaid will cover the room at a SNF for 20 days. Family will discuss amongst themselves what is best moving forward.
--- NOTE | 2024-08-28 12:45 | NUR ---
DR. VARGAS IN ROOM WITH PATIENT.
--- NOTE | 2024-08-28 13:09 | NUR ---
FAMILY CARE CONFERENCE IN [address]ARGAS, CASE MANAGEMENT, AND THIS RN. FAMILY NOW DISCUSSING OPTIONS FOR CONTINUATION OF CARE.
--- NOTE | 2024-08-28 14:18 | NUR ---
Pts sister Vinny (who works here) stopped by my office with her other sister. The family made a group decision for pt to go to [facility] with Hospice. They state concern their mom is not well and has been caring for Lea alone for 5 weeks. They all work and are not able to assist their mom as much as would be needed in a home situation. We did discuss if pt goes to [facility], her mom can be the mom and not the caregiver. I will fax the chart to Brandi at [facility]. I let them know I already spoke with [facility] and I will send the chart for the nurse to review. I let them know [facility] contracts with [facility] and [facility] hospice. They would prefer [facility]. Chart faxed with note letting them know the [employer] will cover the cost of hospice for the pt. Pts precedex gtt was shut off, but she did not awaken to discuss any plans.
--- NOTE | 2024-08-28 16:51 | NUR ---
BED BATH GIVEN AND LINEN CHANGE PROVIDED. PT TOLERATED FAIR. PT MORE RESTLESS BECAUSE PRECEDEX DRIP IS OFF. PT TRYING TO COMMUNICATE BUT IT IS HARD TO UNDERSTAND WHAT SHE IS SAYING. ORAL CARE PROVIDED. NEW BATTERIES IN FAN PROVIDED WELL. HEART RATE REMAINING ELEVATED, CURRENTLY STAYING IN THE 130s. PT'S BREATHING PATTERNS ARE IRREGULAR WITH HER PAIN SHE IS GOING FROM MOANING IN PAIN TO BEING STILL FOR A COUPLE MOMENTS, TO BACK TO BEING TO MOVING AROUND IN PAIN. WHEN ASKING PATIENT IF SHE WANTS MORE PAIN MEDICATION, SHE MOANS, "NO, NO MORE MED. GO HOME."
[2024-08-28] MEDS ORDERED: LORazepam 2 MG/ML VIAL ONE (17:47)
--- NOTE | 2024-08-28 18:44 | NUR ---
AT APPROX 1743 PATIENT STARTED COUGHING, CHOKING, AND SEEMING TO HAVE A HARD TIME CLEARING HER SECRETIONS. HR WAS ELEVATED UP TO THE 160s FROM THE 120-130s, AND HAVING SHORT JESSICA OF V TACH, 3-4 BEATS AT A TIME. PATIENT'S COLOR WAS CHANGING AND SHE LOOKED LIKE SHE WAS STRUGGLING TO BREATH. OXYGEN WAS APPLIED, MD WAS CALLED URGENTLY TO THE ROOM. RT WAS CALLED AND ASSISTED WITH NT SUCTIONING PATIENT. DURING THIS TIME, CODE STATUS WAS AGAIN DISCUSSED WITH PATIENT'S FAMILY THAT WAS PRESENT IN THE ROOM, WHICH INCLUDED HER MOTHER AND ONE OF HER SISTERS. HER MOTHER STATED DURING THIS MOMENT THAT SHE WANTED ALL INTERVENTIONS DONE TO TRY AND SAVE HER, WHEN PREVIOUSLY TODAY THIS PATIENT HAD BEEN MADE A DNR/DNI, AND AFTER THE FAMILY CARE CONFERENCE AT 1200, IT WAS MADE CLEAR THAT THE FOCUS OF CARE FOR HER WAS TO BE COMFORT MEASURES. OTHER FAMILY WAS URGENTLY CALLED BACK TO HOSPITAL. CARE DISCUSSION WAS M ABUNDIO WITH FAMILY AND IN PATIENT'S ROOM AND AGAIN, THE CODE STATUS WAS CLARIFIED THAT THEY DID NOT WANT HER TO BE A FULL CODE, AND ULTIMATELY COMFORT MEASURES ONLY ARE TO BE PURUSED.
[2024-08-28] MEDS ORDERED: ARTIFICIAL TEARS 15 ML BTL OU PRN (19:00)
[2024-08-28] MEDS ORDERED: MORPHINE SULFATE 4 MG/ML VIAL IV PRN (19:00)
[2024-08-28] MEDS ORDERED: LORazepam 2 MG/ML VIAL IV PRN (19:00)
[2024-08-28] MEDS ORDERED: ATROPINE SULFATE 1% OPTH DROPS SL PRN (19:00)
[2024-08-28] MEDS ORDERED: MORPHINE SULFATE 4 MG/ML VIAL ONE (19:01)
--- NOTE | 2024-08-28 19:45 | NUR ---
REPORT RECIEVED FROM DAY SHIFT RN. PATIENT RESTING IN BED WITH FAMILY AT THE BEDSIDE. PATIENT RECIEVED MEDS AT 1900 AND PATIENT SEEMS TO BE TOLERATING WELL. NO GRIMACING NOTED, BUT PATIENT DOES CONTINUE TO MOVE HER LEG OUT OF THE BED FOR COMFORT. PATIENT HAS FENTANYL PAATCH TO LEFT CHEST. FAMILY DENIES ANY OTHER NEEDS AT THIS TIME.
--- NOTE | 2024-08-28 20:15 | NUR ---
PATIENT REMOVED OXYMASK AND PLACED ON HER HEAD. FAMILY STATED "CAN WE JUST LEAVE IT OFF IT SEEMS TO BE UNCOMFORTABLE FOR HER". EDUCATED FAMILY AND FAMILY CHOOSE TO REMOVE IT AND LEAVE IT OFF AT THSI TIME.
--- NOTE | 2024-08-28 20:45 | NUR ---
THIS RN AND KINESIOLOGY PROFESSOR IN TO REPOSITION PATIENT PER FAMILY REQUEST. PATIENT BP AND SPO2 MONITOR REMOVED AT THIS TIME PER FAMILY REQUEST. PATIENT REPOSIONED WITH PILLOWS AND PRN PAIN MEDICATIONS GIVEN, PATIENT GRIMACING AND MOANING AND REPORTS PAIN TO FAMIL AT THE BEDSIDE. PATIENT NOW RESTING WITH EYES CLOSED. RR-EVEN AND UNLABORED AT 14BPM. REAGAN CATHETER IN PLACE. ORAL CARE PRVIDED. FAMILY GIVEN BLANKETS AND PILLOWS FOR COMFORT. NO OTHER ENEDS AT THIS TIME.
--- NOTE | 2024-08-28 22:43 | NUR ---
PATIENT MORE RESTLESS AT THIS TIME. PRN PAIN MEDICATION GIVEN. PATIENTS FAMILY RESTING AT THE BEDSIDE.
--- NOTE | 2024-08-29 01:03 | NUR ---
FAMILY CALLED RN IN THE ROOM TO USE SUCTION TO CLEAR SECRETIONS FOR PATIENT. PATIENT MROE RESTLESS AT THIS TIME AND TRYING TO COUGH. BROOKE USED AND PRN PAIN MEDICATIONS GIVEN. FAMILY AT THE BEDSIDE AND PLAYING SOME MUSIC AT THIS TIME. NO OTHER NEEDS. PATIENT NODS HEAD YES TO SOME QUESTIONS. CALL LIGHT IN REACH.
[2024-08-29] MEDS ORDERED: SCOPOLAMINE 1 MG/3 DAYS PATCH 1 EACH TDSY TD SCH (01:15)
--- NOTE | 2024-08-29 03:11 | NUR ---
PAIN MEDCIATION ADMINISTERED, PT RESTLESS IN BED AND GRIMACING. WET COUGH NOTED BUT MINIMALLY ABLE TO SUCTION R/T PT BITING YAUNKER. SCOPOLOMINE PATCH APPLIED. ORAL CARE COMPLETE. BROTHER AT BEDSIDE AND REQUESTS TO SEE HER HEART RATE ON MONITOR. FULL SET OF VS DEFERRED PER FAMILY REQUEST. FAMILY DENIES FURTHER NEEDS AT THIS TIME.
--- NOTE | 2024-08-29 05:20 | NUR ---
PRN PAIN AND SECREATION MEDICATION ADMINISTERED - PT REPOSISTIONS SELF IN BED, KICKING OFF COVERS. FAMILY SLEEPING AT BEDSIDE.
--- NOTE | 2024-08-29 07:02 | NUR ---
RN ROUNDING ON PT - PT WITHOUT CHEST MOVEMENT. FULL MINUTE APICAL AUSCULTATION DONE AND HEART SOUNDS NOT HEARD. SECOND RN IN ROOM TO VERIFY FINDINGS. BROTHER AT BEDSIDE ASLEEP, WOKEN AND INFORMED PT HAS PASSED. NOTIFIED.
--- NOTE | 2024-08-29 07:11 | NUR ---
RN IN ROOM WITH MD - TIME OF 705. BROTHER IN ROOM AND EDUCATED ON NEXT STEPS OF CARE. ALL QUESTIONS ANSWERED. BROTHER TO NOTIFY FAMILY AND REQUESTS RN'S TO REMOVE RESIDENTIAL PLUMBER AND REPOSISTION PT FOR FAMILY.
--- NOTE | 2024-08-29 10:55 | NUR ---
NOTIFIED OF PT BY SPECIALIZED LANGUAGE INSTRUCTOR MESHA. FAMILY ARRIVED OVER COURSE OF THE MORNING, EXPRESSED SITUATIONALLY APPROPRIATE EMOTIONS. FAMILY INDICATED [facility] [employer] DES[employer] SERVICE PROVIDER. PHOTOGRAMMETRIST PROVIDED SUPPORTIVE PRESENCE, HOSPITALITY, PRAYER. CALLED [facility] AT 0950; PIONEER ARRIVED 1014. BODY DEPARTED 1050. ALL BELONGINGS WENT WITH FAMILY.
[2024-08-31] MEDS ORDERED: SCOPOLAMINE 1 MG/3 DAYS PATCH 1 EACH TDSY TD SCH (09:00)
[2024-08-31] MEDS ORDERED: fentaNYL 1 EACH TDSY TD SCH (09:00)
[2024-09-01] MEDS ORDERED: SCOPOLAMINE PATCH REMOVAL TD SCH (01:15)
== END 2024-08-29 07:06 | DRG 54 ==
LOC: ED 10:38 → MS 13:07 → CCU 13:07
PROVIDERS: Emergency Medicine; ADMIT Student in an Organized Health Care Education/Training Program; ATTEND Student in an Organized Health Care Education/Training Program
PROC: 3E03329 Introduction of Other Anti-infective into Peripheral Vein, Percutaneous Approach (ICD-10-PCS; 2024-08-26)
PROC: 0T9B70Z Drainage of Bladder with Drainage Device, Via Natural or Artificial Opening (ICD-10-PCS; principal; 2024-08-27)
DX: C79.31 Secondary malignant neoplasm of brain (principal); J18.9 Pneumonia, unspecified organism; C79.51 Secondary malignant neoplasm of bone; C78.02 Secondary malignant neoplasm of left lung; C78.1 Secondary malignant neoplasm of mediastinum; Z51.5 Encounter for palliative care; Z66 Do not resuscitate; C50.919 Malignant neoplasm of unspecified site of unspecified female breast; E86.0 Dehydration; E87.6 Hypokalemia; Z79.52 Long term (current) use of systemic steroids; F48.8 Other specified nonpsychotic mental disorders; R62.50 Unspecified lack of expected normal physiological development in childhood; R11.2 Nausea with vomiting, unspecified
CPT/HCPCS: 36415; 51702; 70470; 71045; 74177; 80048; 80053; 81001; 83735; 84439; 84443; 85025; 87502; J0456; J0696; J1100; J1885; J2060; J2270; J2405; J3010; J3475; J3480; J3490; J7030; J7060; Q9967; U0002